=== PATIENT | female | born 1990 | race Caucasian/White ===

== ENCOUNTER 2017-07-06 08:42 | Emergency (ER) | payer MEDICAID, OTHER ==
[~2017-07-06] VITALS: Ht 152.4 cm; Wt 66.2 kg
[~2017-07-06 08:42] MED LIST: DOCU-131 PO; IBUP-1222 PO; OXYC-302 PO; PREN1TAB60 PO
[2017-07-06 09:36] VITALS: BP 104/66
== END 2017-07-06 11:43 | disposition home or self-care (01) ==
LOC: ED 09:30
DX: F10.120 Alcohol abuse with intoxication, uncomplicated (principal); F12.10 Cannabis abuse, uncomplicated; Z90.49 Acquired absence of other specified parts of digestive tract
CPT/HCPCS: 99283

== ENCOUNTER 2018-11-18 19:58 | Emergency (ER) | payer MEDICAID ==
[~2018-11-18] VITALS: Ht 152.4 cm; Wt 69.6 kg
[2018-11-18 20:02] VITALS: BP 121/86
[2018-11-18 20:50] LABS: ALBUMIN 3.6 g/dL (3.4-5.0); ANION GAP 7 mmol/L (5-15); CALCIUM 8.6 mg/dL (8.5-10.1); CHLORIDE 106 mmol/L (98-107)
[2018-11-18 20:54] LABS: BASOPHILS # (AUTO) 0.04 x10^3/uL (0-0.1); BASOPHILS % (AUTO) 0 % (0-1); EOSINOPHILS # (AUTO) 0.27 x10^3/uL (0-0.4); EOSINOPHILS % (AUTO) 2 % (1-7); LYMPHOCYTES % (AUTO) 26 % (22-44); MD NO; MEAN CORPUSCULAR HEMOGLOBIN 28.8 pg (27.0-34.8); MEAN CORPUSCULAR HGB CONC 33.1 g/dL (32.4-35.8); MEAN PLATELET VOLUME 8.2 fL (7.4-10.4); MONOCYTES # (AUTO) 0.63 x10^3/uL (0.2-0.8); MONOCYTES % (AUTO) 5 % (2-9); NEUTROPHILS # (AUTO) 8.85 x10^3/uL (1.8-6.8); NEUTROPHILS % (AUTO) 67 % (42-75); PLATELET COUNT 343 x10^3/uL (130-400); RED BLOOD COUNT 4.51 x10^6/uL (3.82-5.3); RED CELL DISTRIBUTION WIDTH 15.1 % (9.6-15.2)
--- NOTE | 2018-11-18 21:10 | NUR ---
Pt reports right flank pain, states she is unable to lay on her side. approx 9weeks preg. a1, c/o nausea, states "I think that is from being though"
[2018-11-18 21:18] LABS: MICROSCOPIC NOT IND
[2018-11-18 21:20] LABS: CULTURE INDICATED? NO
[2018-11-18] MEDS ORDERED: ACETAMINOPHEN 500 MG TABLET PO ONE (21:30)
[2018-11-18] MEDS ORDERED: ACETAMINOPHEN 500 MG TABLET ONE (21:35)
== END 2018-11-18 22:00 | disposition home or self-care (01) ==
LOC: ED 21:54
DX: O26.891 Other specified pregnancy related conditions, first trimester (principal); M54.5 Low back pain
CPT/HCPCS: 36415; 76801; 80048; 81003; 82040; 85025; 99284

== ENCOUNTER 2018-12-12 14:12 | Emergency (ER) | payer MEDICAID ==
[~2018-12-12] VITALS: Ht 152.4 cm; Wt 67.8 kg
[2018-12-12] MEDS ORDERED: SODIUM CHLORIDE 0.9% 1,000 ML IV ONE (14:36)
[2018-12-12] MEDS ORDERED: ONDANSETRON 2MG/ML, 2ML IVPush ONE (15:00)
[2018-12-12] MEDS ORDERED: ONDANSETRON 2MG/ML, 2ML ONE (15:00)
[2018-12-12] MEDS ORDERED: SODIUM CHLORIDE 0.9% 1,000ML IVBOLUS ONE (15:00)
[2018-12-12] MEDS ORDERED: SODIUM CHLORIDE FLUSH 10ML SYR IVF ONE (15:00)
[2018-12-12 15:07] LABS: BASOPHILS # (AUTO) 0.01 x10^3/uL (0-0.1); BASOPHILS % (AUTO) 0 % (0-1); EOSINOPHILS # (AUTO) 0.05 x10^3/uL (0-0.4); EOSINOPHILS % (AUTO) 1 % (1-7); LYMPHOCYTES # (AUTO) 2.06 x10^3/uL (1-3.4); LYMPHOCYTES % (AUTO) 19 % (22-44); MD NO; MEAN CORPUSCULAR HEMOGLOBIN 29.6 pg (27.0-34.8); MEAN CORPUSCULAR HGB CONC 34.3 g/dL (32.4-35.8); MEAN CORPUSCULAR VOLUME 86.2 fL (80-100); MONOCYTES # (AUTO) 0.49 x10^3/uL (0.2-0.8); MONOCYTES % (AUTO) 4 % (2-9); NEUTROPHILS # (AUTO) 8.34 x10^3/uL (1.8-6.8); NEUTROPHILS % (AUTO) 76 % (42-75); PLATELET COUNT 308 x10^3/uL (130-400); RED BLOOD COUNT 4.87 x10^6/uL (3.82-5.3); RED CELL DISTRIBUTION WIDTH 14.5 % (9.6-15.2)
[2018-12-12 15:16] LABS: ALANINE AMINOTRANSFERASE 16 U/L (12-78); ALBUMIN 3.6 g/dL (3.4-5.0); ANION GAP 7 mmol/L (5-15); CALCIUM 8.7 mg/dL (8.5-10.1); CHLORIDE 107 mmol/L (98-107); CREATININE 0.52 mg/dL (0.55-1.02)
[2018-12-12 15:18] LABS: ALKALINE PHOSPHATASE 44 U/L (45-117); BILIRUBIN,TOTAL 0.2 mg/dL (0.2-1.0); TOTAL PROTEIN 8.1 g/dL (6.4-8.2)
[2018-12-12 16:21] LABS: MICROSCOPIC NOT IND
[2018-12-12 16:22] VITALS: BP 115/76
[2018-12-12 16:41] LABS: CULTURE INDICATED? NO
--- NOTE | 2018-12-12 17:06 | NUR ---
baldo provided per md order for po challenge
== END 2018-12-12 18:51 | disposition home or self-care (01) ==
LOC: ED 14:49
DX: O21.9 Vomiting of pregnancy, unspecified (principal); R11.0 Nausea; Z3A.12 12 weeks gestation of pregnancy
CPT/HCPCS: 36415; 80053; 81003; 83690; 85025; 96361; 96374; 99283; J2405; J7030

== ENCOUNTER 2018-12-14 18:11 | Emergency (ER) | payer MEDICAID ==
[~2018-12-14] VITALS: Ht 152.4 cm; Wt 66.0 kg
[2018-12-14 18:52] LABS: ALBUMIN 3.7 g/dL (3.4-5.0); ANION GAP 9 mmol/L (5-15); CALCIUM 8.9 mg/dL (8.5-10.1); CHLORIDE 108 mmol/L (98-107)
[2018-12-14 19:07] LABS: BASOPHILS # (AUTO) 0.03 x10^3/uL (0-0.1); BASOPHILS % (AUTO) 0 % (0-1); EOSINOPHILS # (AUTO) 0.16 x10^3/uL (0-0.4); EOSINOPHILS % (AUTO) 1 % (1-7); LYMPHOCYTES # (AUTO) 2.54 x10^3/uL (1-3.4); LYMPHOCYTES % (AUTO) 20 % (22-44); MD NO; MEAN CORPUSCULAR HEMOGLOBIN 30.1 pg (27.0-34.8); MEAN CORPUSCULAR VOLUME 86.2 fL (80-100); MEAN PLATELET VOLUME 8.1 fL (7.4-10.4); MONOCYTES # (AUTO) 0.75 x10^3/uL (0.2-0.8); MONOCYTES % (AUTO) 6 % (2-9); NEUTROPHILS # (AUTO) 9.57 x10^3/uL (1.8-6.8); NEUTROPHILS % (AUTO) 73 % (42-75); PLATELET COUNT 332 x10^3/uL (130-400); RED BLOOD COUNT 4.63 x10^6/uL (3.82-5.3); RED CELL DISTRIBUTION WIDTH 14.4 % (9.6-15.2)
[2018-12-14] MEDS ORDERED: SODIUM CHLORIDE 0.9% 1,000ML IVBOLUS ONE (19:30)
[2018-12-14] MEDS ORDERED: SODIUM CHLORIDE FLUSH 10ML SYR IVF ONE (19:30)
[2018-12-14] MEDS ORDERED: ONDANSETRON 2MG/ML, 2ML IVPush ONE (19:30)
[2018-12-14] MEDS ORDERED: ONDANSETRON 2MG/ML, 2ML ONE (19:42)
--- NOTE | 2018-12-14 20:11 | NUR ---
TASK RN: PT RESTING IN RAQUEL WATERS NOTED. IVF INFUSING. PT REPORTS IMPROVEMENT IN N/V WITH MEDICATIONS, "I AM FEELING A LITTLE BETTER". BP/SPO2 MONITORING IN PLACE.
--- NOTE | 2018-12-14 20:35 | NUR ---
PT AMBULATED STEADILY TO BATHROOM TO PROVIDE UA. UA COLLECTED AND SENT TO LAB. MICHAELA SPRING PER ERP
[2018-12-14 20:57] LABS: MICROSCOPIC INDICATED
[2018-12-14 21:31] VITALS: BP 116/76
[2018-12-14 21:31] LABS: CULTURE INDICATED? NO
--- NOTE | 2018-12-14 21:43 | NUR ---
TASK RN: PT REPORTS FEELING BETTER THAN UPON ARRIVAL. PT TOLERATING PO FLUIDS. DC EDUCATION PROVIDED, PT DEMONSTRATES UNDERSTANDING. PT AMBULATED STEADILY TO DC WITH RN
== END 2018-12-14 21:45 | disposition home or self-care (01) ==
LOC: ED 21:39
DX: R11.2 Nausea with vomiting, unspecified (principal)
CPT/HCPCS: 36415; 80048; 81001; 82040; 85025; 96361; 96374; 99283; J2405; J7030

== ENCOUNTER 2019-03-17 20:21 | Outpatient (CLI) | payer MEDICAID ==
[~2019-03-17] VITALS: Ht 152.4 cm; Wt 74.1 kg
[2019-03-17 20:46] VITALS: BP 100/59
== END 2019-03-17 22:43 | disposition home or self-care (01) ==
LOC: LDOP 20:21
PROVIDERS: ATTEND Obstetrics & Gynecology
DX: O26.892 Other specified pregnancy related conditions, second trimester (principal); Z3A.26 26 weeks gestation of pregnancy; R10.9 Unspecified abdominal pain
CPT/HCPCS: 76770; 81003; 87086; 99201; G0463

== ENCOUNTER 2019-06-17 17:47 | Outpatient (CLI) | payer MEDICAID ==
[~2019-06-17 17:47] MED LIST changes: +AMOX-291 PO
[2019-06-17 18:31] LABS: MICROSCOPIC INDICATED
[2019-06-17 18:38] LABS: AMPHETAMINE SCREEN, URINE Negative (Negative); BARBITURATE SCREEN, URINE Negative (Negative); BENZODIAZEPINE SCREEN, URINE Negative (Negative); CANNABINOID SCREEN, URINE Negative (Negative); COCAINE SCREEN, URINE Negative (Negative); METHADONE SCREEN, URINE Negative (Negative)
[2019-06-17 18:46] LABS: OPIATE SCREEN, URINE Negative (Negative)
== END 2019-06-17 19:16 | disposition home or self-care (01) ==
LOC: LDOP 17:47
PROVIDERS: ATTEND Obstetrics & Gynecology
DX: O26.893 Other specified pregnancy related conditions, third trimester (principal); Z3A.39 39 weeks gestation of pregnancy
CPT/HCPCS: 59025; 80307; 81001; 99211; G0463